=== PATIENT | female | born 2000 | race Caucasian/White ===

== ENCOUNTER 2024-07-17 21:51 | Inpatient (IN) | payer MEDICAID ==
[~2024-07-17] VITALS: Ht 165.1 cm; Wt 77.1 kg
[2024-07-17] MEDS ORDERED: LIDOCAINE 2%HCL (LOCAL ANESTH.) INJ 20ML MDV IJ PRN (22:15)
[2024-07-17] MEDS: LACTATED RINGER'S 1,000 ML IV SCH (22:29)
[2024-07-17] MEDS: PENICILLIN G POT 5MIL/D5 50ML 50 ML IV ONE (22:30)
[2024-07-17] MEDS: WITCH HAZEL-GLYCERIN PAD TOP PRN (22:34)
[2024-07-17] MEDS: PHISODERM TOP SOLN 240ML BTL TOP PRN (22:34)
[2024-07-17] MEDS: DERMOPLAST 60ML BOTTLE TOP PRN (22:34)
[2024-07-17 22:46] LABS: Basophils # (auto) 0 10 ^3/uL (0-0.2); Basophils % (auto) 0.3 % (0.0-2.0); Eosinophils # (auto) 0 10 ^3/uL (0-0.8); Eosinophils % (auto) 0.3 % (0.0-7.0); Hematocrit 28.8 % (36.0-46.0); Hemoglobin 9.6 g/dL (12.2-16.2); Lymphocytes # (auto) 1.5 10 ^3/uL (0.4-5.4); Lymphocytes % (auto) 10.5 % (10.0-50.0); Mean Corpuscular Hemoglobin 29.8 pg (28.0-32.0); Mean Corpuscular Hgb Conc. 33.5 g/dL (32.0-36.0); Mean Corpuscular Volume 89.1 fL (80.0-100.0); Monocytes # (auto) 0.9 10 ^3/uL (0-1.3); Monocytes % (auto) 6.3 % (0.0-12.0); Neutrophils % (auto) 82.6 % (37.0-80.0); Platelet Count (auto) 341 10^3/uL (140-450); Red Blood Cells 3.23 10^6/uL (4.0-5.20); Red Cell Distribution Width 15.1 % (11.8-14.3); White Blood Cell 14.6 10^3/uL (4.4-10.8)
[2024-07-17 23:04] LABS: INR 0.99 (0.9-1.15); Partial Thromboplastin Time 23.9 SEC (24.5-34.5); Prothrombin Time 10.5 sec (9.3-11.8)
[2024-07-17 23:10] LABS: Alkaline Phosphatase 169 U/L (46-116); Anion Gap 10 (5-15); Aspartate Aminotransferase 12 U/L (13-40); BUN/Creatinine Ratio 10.3 (10.0-20.0); Bilirubin, Total 0.4 mg/dL (0.2-1.0); Blood Urea Nitrogen 6 mg/dL (9-23); Calcium 9.2 mg/dL (8.7-10.4); Carbon Dioxide 20 mmol/L (20-31); Chloride 105 mmol/L (98-107); Glucose 102 mg/dL (74-106); Potassium 3.6 mmol/L (3.5-5.1); Sodium 135 mmol/L (136-145); Total Protein 6.8 g/dL (5.7-8.2)
[2024-07-17 23:11] LABS: Alanine Aminotransferase < 9 U/L (7-40)
[2024-07-17 23:33] LABS: Urine Bacteria None Seen /hpf (None Seen)
[2024-07-17 23:52] LABS: Urine Blood 3+ /uL (Negative); Urine Clarity Turbid (Clear); Urine Color Light-Orange (Yellow); Urine Mucus FEW (None Seen); Urine Protein, UAD 1+ (Negative); Urine Specific Gravity 1.024 (1.001-1.035); Urine Urobilinogen Normal (Negative); Urine WBC 52 /hpf (0 - 5)
[2024-07-17 23:54] LABS: Amphetamine Screen, Urine Neg (NEGATIVE); Barbiturate Scree,Urine Neg (NEGATIVE); Benzodiazephine Screen, Urine Neg (NEGATIVE); Cocaine Screen, Urine Neg (NEGATIVE)
[2024-07-17 23:55] LABS: Cannabinoid Screen, Urine Pos (NEGATIVE); Opiate Scree,Urine Neg (NEGATIVE); Phencyclidine Screen, Urine Neg (NEGATIVE)
[2024-07-18] MEDS ORDERED: ACETAMINOPHEN 325 MG TAB PO PRN (01:00)
[2024-07-18] MEDS ORDERED: ONDANSETRON ODT 4 MG TAB PO PRN (01:00)
[2024-07-18] MEDS: PENICILLIN G POTASSIUM 2,500,000 UNITS in D5W 5% 50 ML IV SCH (01:12)
[2024-07-18] MEDS: IBUPROFEN 600 MG TAB PO PRN (02:32)
[2024-07-18 03:01] VITALS: BP_SYST 111; BP_SYST 128; BP_DIAS 55; BP_DIAS 78; PULSE 65; PULSE 68; RESP 16; TEMP 98
[2024-07-18] MEDS: LACT. RINGERS/OXYTOCIN 20UNITS 500 ML IV ONE ×2 (05:30)
[2024-07-18 07:00] VITALS: BP 105/51; PULSE 93; RESP 18; TEMP 97.4; O2SAT 97
[2024-07-18] MEDS: FERROUS SULFATE 325mg EC TAB PO SCH (10:13)
[2024-07-18 11:00] VITALS: BP 109/53; PULSE 72; RESP 20; TEMP 97.4; O2SAT 100
[2024-07-18 15:00] VITALS: BP 109/69; PULSE 68; RESP 20; TEMP 98.1; O2SAT 97
[2024-07-18 19:00] VITALS: BP 109/72; PULSE 77; RESP 20; TEMP 97.9; O2SAT 98
[2024-07-18] MEDS ORDERED: FER325T PO (20:22)
[2024-07-18] MEDS ORDERED: DOCU-94 PO (20:22)
[2024-07-18] MEDS ORDERED: PREN-96 PO (20:22)
[2024-07-18] MEDS ORDERED: IBU600T PO (20:22)
[2024-07-18] MEDS ORDERED: ASCO500T11 PO (20:22)
[2024-07-18] MEDS: DOCUSATE SOD 100 MG CAP PO SCH (21:58)
[2024-07-18 22:43] VITALS: BP 109/71; PULSE 75; RESP 16; TEMP 97.9; O2SAT 98
[2024-07-19 02:58] VITALS: BP 107/68; PULSE 81; RESP 16; TEMP 98.1; O2SAT 97
[2024-07-19 05:08] LABS: Rubella Antibodies, IgG 1.37 index (Immune >0.99)
[2024-07-19 05:10] LABS: Basophils # (auto) 0.1 10 ^3/uL (0-0.2); Basophils % (auto) 0.5 % (0.0-2.0); Eosinophils # (auto) 0.1 10 ^3/uL (0-0.8); Eosinophils % (auto) 1.3 % (0.0-7.0); Hematocrit 28.7 % (36.0-46.0); Hemoglobin 9.7 g/dL (12.2-16.2); Lymphocytes # (auto) 2.3 10 ^3/uL (0.4-5.4); Lymphocytes % (auto) 23.3 % (10.0-50.0); Mean Corpuscular Hemoglobin 30.4 pg (28.0-32.0); Mean Corpuscular Volume 89.5 fL (80.0-100.0); Monocytes # (auto) 0.8 10 ^3/uL (0-1.3); Monocytes % (auto) 8.3 % (0.0-12.0); Neutrophils # (auto) 6.6 10 ^3/uL (1.6-8.6); Neutrophils % (auto) 66.6 % (37.0-80.0); Platelet Count (auto) 349 10^3/uL (140-450)
[2024-07-19 06:45] VITALS: BP 108/71; PULSE 85; RESP 18; TEMP 98.5; O2SAT 97
[2024-07-19 07:07] LABS: RPR Non Reactive (Non Reactive)
[2024-07-19 10:48] VITALS: BP 120/73; PULSE 86; RESP 18; TEMP 98; O2SAT 96
[2024-07-19 15:00] VITALS: BP 126/76; PULSE 82; RESP 18; TEMP 97.5; O2SAT 97
[2024-07-21 10:07] LABS: Treponema Pallidum Ab LC Non Reactive (Non Reactive)
== END 2024-07-19 15:47 | disposition home or self-care (01) | DRG 560 ==
LOC: LDRP 21:51 → OBSVTOIN 22:00 → LDRP 07-18 16:09
PROVIDERS: ADMIT Obstetrics & Gynecology; ATTEND Obstetrics & Gynecology
PROC: 10E0XZZ Delivery of Products of Conception, External Approach (ICD-10-PCS; principal; 2024-07-18)
DX: O60.14X0 Preterm labor third trimester with preterm delivery third trimester, not applicable or unspecified (principal); Z37.0 Single live birth; O90.81 Anemia of the puerperium; Z3A.36 36 weeks gestation of pregnancy
CPT/HCPCS: 36415; 59409; 76805; 80053; 80307; 81001; 85025; 85610; 85730; 86592; 86703; 86762; 86780; 86803; 86850; 86900; 86901; 87340; 94760; 96360; 96361; G0378; J2540; J2590; J7060